=== PATIENT | male | born 1960 | race Caucasian/White ===

== ENCOUNTER 2024-12-18 09:48 | Observation (INO) ==
--- NOTE | 2024-11-19 15:26 | PAT Medication Instructions ---
Medication Instructions Date of Service November 19, 2024 Home Medications albuterol sulfate 90 mcg/actuation aerosol inhaler 2 puff inhalation Q6H PRN sob amlodipine 10 mg tablet 10 mg PO HS cholecalciferol (vitamin D3) 125 mcg (5,000 unit) tablet (Vitamin D3) 125 mcg PO QAM esomeprazole magnesium 40 mg capsule,delayed release 40 mg PO HS levothyroxine 125 mcg tablet (Synthroid) 125 mcg PO QAM meloxicam 15 mg tablet 15 mg PO HS mometasone-formoterol HFA 200 mcg-5 mcg/actuation aerosol inhaler (Dulera) 2 puff inhalation BID multivitamin 1 tab PO QAM valsartan 320 mg tablet 320 mg PO QAM ASK your surgeon for instructions meloxicam 15 mg tablet 15 mg PO HS DO NOT take the morning of surgery cholecalciferol (vitamin D3) 125 mcg (5,000 unit) tablet (Vitamin D3) 125 mcg PO QAM multivitamin 1 tab PO QAM valsartan 320 mg tablet 320 mg PO QAM Take morning of surgery With a small sip of water, OTHERWISE NOTHING TO EAT OR DRINK AFTER MIDNIGHT: albuterol sulfate 90 mcg/actuation aerosol inhaler 2 puff inhalation Q6H PRN sob (use if needed; please bring rescue inhaler with you to hospital day of surgery if possible) levothyroxine 125 mcg tablet (Synthroid) 125 mcg PO QAM mometasone-formoterol HFA 200 mcg-5 mcg/actuation aerosol inhaler (Dulera) 2 puff inhalation BID Take evening before surgery albuterol sulfate 90 mcg/actuation aerosol inhaler 2 puff inhalation Q6H PRN sob (if needed) amlodipine 10 mg tablet 10 mg PO HS esomeprazole magnesium 40 mg capsule,delayed release 40 mg PO HS mometasone-formoterol HFA 200 mcg-5 mcg/actuation aerosol inhaler (Dulera) 2 puff inhalation BID Other Notes If you have any questions please call us at [phone] or [phone] or [phone] or [phone]
--- NOTE | 2024-11-27 11:47 | Anesthesiology Consultation ---
Date of Service November 27, 2024 Assessment & Plan (1) Encounter for pre-operative examination: - awaiting surgeon ordered medical clearance, Brady Tunicaronel Rosales 12/08/24. Chart Review Chart Review: Pending: Refer to Additional Notes / Consult section and Patient seen in Pre Admission Testing Teaching & Discussion Pre-Anesthesia Teaching/Discussion Notes: Instructed NPO after midnight before surgery, except medications with 15 cc of water. Medication instructions provided according to the PAT guidelines. History Surgery Operation Date: 12/18/24 07:45 Proposed Procedures p L5-S1 Hardware Removal, L3-L5 Decompression, L5-S1 Exploration, L3-S1 Fusion - Emeterio Haddad, Height/Weight Height: 6 ft Weight: 130.5 kg Allergies Allergy/AdvReac Type Severity Reaction Status Date / Time No Known Allergies Allergy Unknown * Verified 11/18/24 14:14 Medications Home Medications Medication Instructions Recorded Confirmed Last Taken albuterol sulfate 90 mcg/actuation 2 puff inhalation Q6H PRN sob 11/18/24 11/18/24 Unknown aerosol inhaler amlodipine 10 mg tablet 10 mg PO HS 11/18/24 11/18/24 Unknown cholecalciferol (vitamin D3) 125 125 mcg PO QAM 11/18/24 11/18/24 Unknown mcg (5,000 unit) tablet (Vitamin D3) esomeprazole magnesium 40 mg 40 mg PO HS 11/18/24 11/18/24 Unknown capsule,delayed release levothyroxine 125 mcg tablet 125 mcg PO QAM 11/18/24 11/18/24 Unknown (Synthroid) meloxicam 15 mg tablet 15 mg PO HS 11/18/24 11/18/24 Unknown mometasone-formoterol HFA 200 2 puff inhalation BID 11/18/24 11/18/24 Unknown mcg-5 mcg/actuation aerosol inhaler (Dulera) multivitamin 1 tab PO QAM 11/18/24 11/18/24 Unknown valsartan 320 mg tablet 320 mg PO QAM 11/18/24 11/18/24 Unknown Past Medical History Medical History Acid reflux controlled, stable per pt Asthma well controlled w/ daily inhaler use; last albuterol inhaler use several weeks from cigarette smoke exposure History of anesthesia complications severe constipation after lumbar surgery History of COVID-19 (2022) resolved History of vertigo resolved w/ therapy HTN (hypertension) controlled, stable per pt Hx of thyroid nodule Hypothyroidism Sleep apnea CPAP-compliant Patient denies h/o stroke, seizures, heart attack, heart failure, DM, blood clots/DVTs or blood transfusions. Exercise / Class Metabolic Activity II 4-5 Yardwork/Stairs/Walk up hill (occasional shortness of breath with one flight of stairs if increased activity/air exposure, denies chest discomfort) Past Family History Family History Mother Diabetes Past Surgical History Surgical History History of lumbar fusion l5-s1 History of partial thyroidectomy right History of pterygium excision right eye Hx of cholecystectomy Hx of colonoscopy Hx of wisdom tooth extraction Past Anesthesia History No Family Hx of Anesthesia Complications and Other (severe constipation post-op) History of PONV No Hx of PONV and No Hx of Motion Sickness Social History Smoking Status: Never smoker Do You Dip or Chew Tobacco: No Hx Alcohol Use: Yes Alcohol type: beer alcohol intake frequency: 3 or more drinks per day (5 beers daily-denies h/o withdrawal, seizures, tremors) Hx Substance Use: No substance use type: does not use Review of Systems Patient denies chest pain, fever, chills, cough, wheezing, or palpitations. Physical Exam Vital Signs Vitals BP 146/78 P 83 TEMP 98.2 SP02 96% on RA RESP 18 Physical Patient resting comfortably in chair in no acute distress, alert and oriented, responding appropriately throughout visit Full cervical extension range of motion without pain TMD 3.5 finger breadths Mallampati Score 3 Dentition: intact, denies chipped or loose teeth, caps/crowns, implants or bridges Lungs: normal respiratory effort. Good air movement, clear throughout to auscultation, no adventitious breath sounds Cardiac: regular rate and rhythm, no murmurs noted Carotid arteries: negative bruit bilat Lab Results Anesthesia Preop Results Results Anesthesia Widget: WBC 5.29 K/ul (4.8-10.8) 11/27/24 Hgb 14.1 g/dl (14.0-18.0) 11/27/24 Hct 41.5 % (42.0-52.0) L 11/27/24 Plt 207 K/uL (130-400) 11/27/24 Na 141 mmol/L (136-145) 11/27/24 K 4.2 mmol/L (3.5-5.1) 11/27/24 Cl 108 mmol/L (98-107) H 11/27/24 CO2 26 mmol/L (21-32) 11/27/24 BUN 17 mg/dl (6-23) 11/27/24 Creat 0.87 mg/dl (0.6-1.4) 11/27/24 Glucose Level 116 mg/dl (70-99(Fasting)) H 11/27/24 PT 10.9 Seconds (9.0-12.0) 11/27/24 PTT 29 Seconds (21-31) 11/27/24 INR 1.0 (0.9-1.1) 11/27/24 Urine Color Yellow 11/27/24 Urine Appearance Clear (Clear) 11/27/24 Urine pH 6.0 (4.5-7.5) 11/27/24 Urine Specific [place] 1.013 (1.000-1.030) 11/27/24 Urine Protein Negative (Negative) 11/27/24 Urine Glucose (UA) Negative (Negative) 11/27/24 Urine Ketones Negative (Negative) 11/27/24 Urine Blood Negative (Negative) 11/27/24 Urine Nitrite Negative (Negative) 11/27/24 Urine Bilirubin Negative (Negative) 11/27/24 Urine Urobilinogen Negative (Negative) 11/27/24 Urine Leukocyte Esterase Negative (Negative) 11/27/24 Blood Type O Positive 11/27/24 Antibody Screen NEGATIVE 11/27/24 Testing Electrocardiogram Date: 11/27/24 NSR, rate 73 bpm Possible inferior infarct, age undetermined No significant change vs 05/21/2008 EKG Chest X-Ray Date: 11/27/24 There is mild cardiomegaly without pulmonary vascular congestion. No consolidation or pleural effusion. IMPRESSION: No acute findings.
[~2024-12-18 09:48] MED LIST: LIDOCAINE 2% 2 ML VIAL/AMP(20MG/ML) INFIL ONE; PROPOFOL IV EMULSION 10 MG/ML 20 ML VIAL IV ONE; ROCURONIUM BROMIDE 10 MG/ML 5 ML VIAL IV ONE
[2024-12-18] MEDS: LR 15ML/HR IV SCH (10:17)
[2024-12-18] MEDS: ACETAMINOPHEN 500 MG TAB PO SCH (10:17)
[2024-12-18] MEDS: CeleBREX 200 MG CAP PO SCH (10:17)
[2024-12-18] MEDS: GABAPENTIN 600 MG DOSE PO SCH (10:17)
[2024-12-18] MEDS ORDERED: ONDANSETRON INJ 2 MG/ML 2 ML VIAL IV PRN ×2 (10:35→16:08)
[2024-12-18] MEDS ORDERED: ATROPINE SULFATE 0.1 MG/ML 10ML SYR IV PRN (10:35)
[2024-12-18] MEDS ORDERED: FLUMAZENIL 0.1 MG/1 ML 10 ML VIAL IV PRN (10:35)
[2024-12-18] MEDS ORDERED: PROMETHAZINE HCL 6.25 MG in SODIUM CHLORIDE 0.9% 50 ML IV PRN (10:35)
[2024-12-18] MEDS ORDERED: NALOXONE HCL 0.4 MG/1 ML VIAL/CARP IV PRN ×2 (10:35→16:08)
[2024-12-18] MEDS: LR 60ML/HR IV SCH (10:39)
--- NOTE | 2024-12-18 10:50 | History & Physical Bridge Note ---
Date of Service December 18, 2024 History & Physical Bridge Note I have examined the patient, reviewed the History & Physical and in the interval since the performance of the History & Physical I have noted the following changes of clinical significance: no changes noted
--- NOTE | 2024-12-18 10:51 | History & Physical Report ---
Date of Service December 18, 2024 Assessment & Plan (1) Multilevel lumbosacral spondylosis with radiculopathy: Plan: Hardware removal L5-S1, decompression L3-L5, exploration L5-S1, fusion L3-S1 History of Present Illness Chief Complaint: Back and leg pain Primary Care Provider: Leighann Rosales This is a 64-year-old male who presents for chronic persistent back and leg pain after failing course of nonoperative care is here for surgical intervention. Allergies Allergy/AdvReac Type Severity Reaction Status Date / Time No Known Allergies Allergy Unknown * Verified 12/18/24 10:07 Home Medications Medication Instructions Recorded Confirmed Type albuterol sulfate 90 mcg/actuation 2 puff inhalation Q6H PRN sob 11/18/24 12/18/24 History aerosol inhaler amlodipine 10 mg tablet 10 mg PO HS 11/18/24 12/18/24 History cholecalciferol (vitamin D3) 125 125 mcg PO QAM 11/18/24 12/18/24 History mcg (5,000 unit) tablet (Vitamin D3) esomeprazole magnesium 40 mg 40 mg PO HS 11/18/24 12/18/24 History capsule,delayed release levothyroxine 125 mcg tablet 125 mcg PO QAM 11/18/24 12/18/24 History (Synthroid) meloxicam 15 mg tablet 15 mg PO HS 11/18/24 12/18/24 History mometasone-formoterol HFA 200 2 puff inhalation BID 11/18/24 12/18/24 History mcg-5 mcg/actuation aerosol inhaler (Dulera) multivitamin 1 tab PO QAM 11/18/24 12/18/24 History valsartan 320 mg tablet 320 mg PO QAM 11/18/24 12/18/24 History Past Med/Surg History Problem List (Updated 12/18/24 @ 10:51 by Emeterio Haddad DO) Multilevel lumbosacral spondylosis with radiculopathy Encounter for pre-operative examination Medical History Acid reflux controlled, stable per pt Asthma well controlled w/ daily inhaler use; last albuterol inhaler use several weeks from cigarette smoke exposure History of anesthesia complications severe constipation after lumbar surgery History of COVID-19 (2022) resolved History of vertigo resolved w/ therapy HTN (hypertension) controlled, stable per pt Hx of thyroid nodule Hypothyroidism Sleep apnea CPAP-compliant Surgical History History of lumbar fusion l5-s1 History of partial thyroidectomy right History of pterygium excision right eye Hx of cholecystectomy Hx of colonoscopy Hx of wisdom tooth extraction Family History Mother Diabetes Social History Smoking Status: Never smoker Second Hand Exposure: No; Do You Dip or Chew Tobacco: No; Tobacco Cessation Education Requested by Patient: No Hx Alcohol Use: Yes Alcohol type: beer Hx Substance Use: No Preferred Language: [place] Islander Communication Ability: Effective Scaffold Setter Required: No Beliefs That Will Affect Care: None Current Living Situation: Spouse Other Information That Helps Us Care for You: No Feels Safe at Home: Yes Safety Concerns: Feels Safe At This Time Assistive Devices: Glasses Physical Exam Physical Exam: Patient is alert and oriented Heart regular rhythm Lungs clear Results & Data Results & Data Vital Signs (Past 12 Hours) Vital Signs Temp Pulse Resp BP Pulse Ox O2 Del Method 12/18/24 10:40 36.6 C 78 20 172/94 H 98 Room Air
[2024-12-18] MEDS ORDERED: KETAMINE HCL 10MG/ML SYR ONE (11:08)
[2024-12-18] MEDS ORDERED: MIDAZOLAM HCL 1 MG/ML 2ML VIAL ONE (11:08)
[2024-12-18] MEDS ORDERED: SUGAMMADEX SODIUM 200 MG/2 ML VIAL IV ONE (11:08)
[2024-12-18] MEDS ORDERED: ALBUTEROL HFA 8 GM INHALER INH ONE (11:11)
[2024-12-18] MEDS ORDERED: ACETAMINOPHEN 1000 MG/100 ML IV IV ONE (11:11)
[2024-12-18] MEDS: ceFAZolin 3000MG 3,000 MG/72.5 ML BAG IV SCH (11:21)
[2024-12-18] MEDS ORDERED: ePHEDrine sulfate 50 MG/5 ML SYR ONE (11:41)
[2024-12-18] MEDS ORDERED: ONDANSETRON INJ 2 MG/ML 2 ML VIAL ONE (11:44)
[2024-12-18] MEDS ORDERED: DEXAMETHASONE SOD INJ 4 MG/ML VIAL ONE (11:44)
[2024-12-18] MEDS ORDERED: PHENYLEPHRINE HCL 10 MG/ML VIAL ONE (12:19)
[2024-12-18] MEDS: ceFAZolin 330 MG/ML 1 GM VIAL ONE (12:39)
[2024-12-18] MEDS ORDERED: ROCURONIUM BROMIDE 10 MG/ML 5 ML VIAL IV ONE (12:57)
[2024-12-18] MEDS ORDERED: HYDROmorphone INJ 2 MG/ML SYR/VIAL ONE (12:59)
[2024-12-18] MEDS ORDERED: ALBUMIN HUMAN 5% 12.5 GM/250 ML VIAL IV ONE (13:24)
[2024-12-18] MEDS: BUPIVACAINE/EPINEPHRINE 0.25% 1:200,000 30 ML VIAL ONE (13:41)
[2024-12-18] MEDS: SURGICEL ABSORB HEMOSTAT 2IN X 14IN TOP ONE (13:42)
[2024-12-18] MEDS: FLOSEAL HEMOSTATIC MATRIX 10ML TOP ONE (13:42)
--- NOTE | 2024-12-18 13:48 | Operative Report ---
Post Operative Report Pre & Post Diagnosis Operation Date: 12/18/24 10:55 Pre-Op Diagnosis: Multilevel lumbosacral spondylosis with radiculopathy Post-Op Diagnosis: Multilevel lumbosacral spondylosis with radiculopathy I identified the patient and participated in the time-out.: Yes Procedure Operation Date: 12/18/24 10:55 Actual Procedures #1 removal of posterior instrumentation L5-S1. #2 exploration of fusion L5-S1. #3 lumbar decompression with bilateral medial facetectomies and foraminotomies L3-L4 L4-5. #4 posterior spinal fusion L3-L5. #5 placement posterior instrumentation L3-S1 using Hawthorne. #6 interbody fusion L3-L4 L4-L5. #7 placement of Spira 13 x 26 mm at L3-L4 and L4-L5. #8 placement of Proteus, with Koros bone graft in the posterior lateral gutters and os design interbody space. #9 application of versa wrap of the exposed dura. Surgeon Emeterio Haddad, DO Veneer Jointer Jake Mariee Estimated Blood Loss 850 Findings See Below The patient is 6 foot tall weighing 126 kg with a BMI in excess of 37. This combined with an EBL of greater than 900 cc created significant technical difficulty including positioning exposure and the procedure itself. Patient demonstrated significant epidural adhesions prolonging and complicating the decompression. This had at least 50% increased operative time. I am recommending a modifier 22. Specimens None Indications This is a 64-year-old male presents publish diagnosis after failing course of nonoperative care is here for surgical invention. Description of Procedure Patient was met with identified informed consent obtained. Patient was then taken to the operative suite underwent intubation and placed in a prone position on the Oh table of the Delano frame. All bony promises well-padded eyes inspected to ensure no external pressure placed upon them. This point lumbar spine was prepped and draped in normal sterile fashion. Sharp dissection with the assistance of Bovie cautery from down to and exposing the lamina and transverse processes of L3-L4 and instrumentation at L5-S1 bilaterally. Then proceeded to remove the hardware bilaterally. Explored the fusion mass noting it to be mature and intact. Then performed a complete laminectomy of L4 with bilateral medial facetectomies and foraminotomies followed by complete laminectomy of L3 with bilateral male facetectomies and foraminotomies addressing severe subarticular and foraminal stenosis. Pedicle screws were then placed at L3 L4-5 and the S1 levels bilaterally with assistance of fluoroscopy and purposes robi contoured and placed. By way of transforaminal approach on the left and complete discectomy of L4-L5 was performed endplates curetted to subcortical bleeding bone and a 13 x 26 mm Spira cage tapped in position. Then proceeded to L3-L4 and again by way of transforaminal approach on the left. Complete be discectomy performed. Endplates curetted subcortical and bone. A 13 x 26 mm Spira cage was tapped into position. Please note all cages were packed with os design bone graft. The rods then locked into position bilaterally. Transverse processes of L3 L4-5 burred to subcortical bleeding bone. Proteus combined with Koros bone graft placed in posterior gutters. Versa wrap placed of exposed dura. 15 round BAILEY drain inserted. The incision was then closed with 1 Vicryl to fascia 2-0 Vicryl subcutaneously and 4-0 Monocryl for final skin closure. Steri-Strips sterile dressing placed. Patient waken taken to PACU stable condition. Please note Jake Bernstein was present at the entire procedure on the patient positioning complex course of the surgery and final skin closure. Im ordering 10 grams of Collagen Powder ([facility] A6010 Primary Dressing) and 10 bordered super absorbent ([facility] A6196 Secondary Dressing) to treat an incision wound that was caused by a spine procedure. The incision is approximately 2 cm(W) x 2 cm(L) down to the spinal column and epidural space 2 cm (D) in size and is a full thickness wound showing no signs of infection. Collagen comes in 1 gram packets so 10 packets were ordered. Given the size of the wound, with moderate exudate I chose to order a 10 day supply. The patient will be provided instructions for proper application of the collagen wound kit. The patient will be asked to apply the collagen powder daily and then cover it with sterile dressings dispensed. Collagen was selected as I expect the collagen to attract monocytes and fibroblasts, act as a sacrificial substrate for MMPs, and ultimately proved a matrix for tissue and vessel growth. The collagen will act as a primary dressing in this scenario. It is medically necessary for proper healing of these wounds to improve bioavailability and contact with each wound surface, this is also to help prevent infection of wounds and promote healing ultimately leading to a better healing outcome and limit the risk of infection. I attest to the content of the Intraoperative Record and any orders documented therein. Any exceptions are noted below.
--- NOTE | 2024-12-18 14:10 | Fluoroscopy Report ---
FL lumbar spine 2-3V CLINICAL HISTORY: L3-S1 FUSION COMPARISON STUDY: None FLUOROSCOPY TIME: 11 seconds FLUOROSCOPY IMAGES: 2 EXPOSURE DOSE: 13 mGy FINDINGS: Fluoroscopy was provided for lumbar surgery. IMPRESSION: Intraoperative fluoroscopy. ACT 112: Negative or not required by law. Electronically signed by: Nolan Gan M.D. 12/18/2024 2:08 PM
[2024-12-18] MEDS: HYDROmorphone INJ 1 MG/ML SYRINGE IV PRN (14:42)
--- NOTE | 2024-12-18 14:55 | Anesthesiology Progress Note ---
Date of Service December 18, 2024 Anesthesia Post Procedure Vital Signs Vital Signs: Temp Pulse Pulse Resp BP Pulse Ox O2 Del Method 12/18/24 14:45 79 16 122/78 97 Nasal Cannula 12/18/24 14:35 84 18 123/73 97 Oxymask 12/18/24 14:25 79 16 128/75 100 Oxymask 12/18/24 14:15 36.7 C 82 12 128/80 100 Oxymask 12/18/24 10:40 36.6 C 78 20 172/94 H 98 Room Air O2 Flow Rate 12/18/24 14:45 2 12/18/24 14:35 2 12/18/24 14:25 4 12/18/24 14:15 6 12/18/24 10:40 Pain Intensity Lower Back: Pain Intensity: 5 Transfer of Care Handoff Completed per policy Notes Mental Status: alert / awake / arousable and participated in evaluation Patient Amnestic to Procedure: Yes Nausea / Vomiting: adequately controlled Pain: adequately controlled Airway Patency, RR, SpO2: stable & adequate BP & HR: stable & adequate Hydration State: stable & adequate Anesthetic Complications: no major complications apparent and Pt Satisfied with anesthetic care
[2024-12-18] MEDS ORDERED: ALBUTEROL HFA 8 GM INHALER INH PRN (16:08)
[2024-12-18] MEDS ORDERED: PROMETHAZINE 12.5 MG/50.5 ML BAG IV PRN (16:08)
[2024-12-18] MEDS ORDERED: MAGNESIUM HYDROXIDE SUSP 30 ML UDC PO PRN (16:08)
[2024-12-18] MEDS ORDERED: SOD PHOSPHATE/SOD BIPHOSPHATE ENEMA 132 ML BTL PR PRN (16:08)
[2024-12-18] MEDS ORDERED: FAMOTIDINE 20 MG TAB PO PRN (16:08)
[2024-12-18] MEDS ORDERED: ONDANSETRON 4 MG OD TAB PO PRN (16:08)
[2024-12-18] MEDS ORDERED: METOCLOPRAMIDE HCL INJ 5 MG/ML 2 ML VIAL IV PRN (16:08)
[2024-12-18] MEDS ORDERED: HYDROmorphone INJ 0.5 MG/0.5 ML SYR IV PRN (16:08)
[2024-12-18] MEDS ORDERED: LORazepam 0.5 MG TAB PO PRN (16:08)
[2024-12-18] MEDS ORDERED: ACETAMINOPHEN 1,000 MG/100 ML VIAL IV PRN (16:08)
[2024-12-18] MEDS ORDERED: diphenhydrAMINE Capsule 25 MG CAP PO PRN (16:08)
[2024-12-18] MEDS ORDERED: DO NOT ADMINISTER PNEUMOCOCCAL VACCINE PRN (16:08)
[2024-12-18] MEDS ORDERED: DO NOT ADMINISTER FLU VACCINE PRN (16:08)
[2024-12-18] MEDS ORDERED: HYDROmorphone INJ 1 MG/ML SYRINGE IV PRN (16:08)
[2024-12-18] MEDS ORDERED: ALUMINUM/MAGNESIUM SUSP 30 ML UDC PO PRN (16:08)
[2024-12-18] MEDS ORDERED: LORazepam Inj 0.5 MG in SYRINGE 0.25 ML IV PRN (16:08)
--- NOTE | 2024-12-18 17:17 | Hospitalist Consultation ---
Date of Consultation December 18, 2024 History of Present Illness Attending Physician: Emeterio Haddad DO Allergies Allergy/AdvReac Type Severity Reaction Status Date / Time No Known Allergies Allergy Unknown * Verified 12/18/24 10:07 Home Medications Medication Instructions Recorded Confirmed Type albuterol sulfate 90 mcg/actuation 2 puff inhalation Q6H PRN sob 11/18/24 12/18/24 History aerosol inhaler amlodipine 10 mg tablet 10 mg PO HS 11/18/24 12/18/24 History cholecalciferol (vitamin D3) 125 125 mcg PO QAM 11/18/24 12/18/24 History mcg (5,000 unit) tablet (Vitamin D3) esomeprazole magnesium 40 mg 40 mg PO HS 11/18/24 12/18/24 History capsule,delayed release levothyroxine 125 mcg tablet 125 mcg PO QAM 11/18/24 12/18/24 History (Synthroid) meloxicam 15 mg tablet 15 mg PO HS 11/18/24 12/18/24 History mometasone-formoterol HFA 200 2 puff inhalation BID 11/18/24 12/18/24 History mcg-5 mcg/actuation aerosol inhaler (Dulera) multivitamin 1 tab PO QAM 11/18/24 12/18/24 History valsartan 320 mg tablet 320 mg PO QAM 11/18/24 12/18/24 History Patient History Medical History Acid reflux controlled, stable per pt Asthma well controlled w/ daily inhaler use; last albuterol inhaler use several weeks from cigarette smoke exposure History of anesthesia complications severe constipation after lumbar surgery History of COVID-19 (2022) resolved History of vertigo resolved w/ therapy HTN (hypertension) controlled, stable per pt Hx of thyroid nodule Hypothyroidism Sleep apnea CPAP-compliant Surgical History History of lumbar fusion l5-s1 History of partial thyroidectomy right History of pterygium excision right eye Hx of cholecystectomy Hx of colonoscopy Hx of wisdom tooth extraction Family History Mother Diabetes Social History Smoking Status: Never smoker Second Hand Exposure: No; Do You Dip or Chew Tobacco: No; Tobacco Cessation Education Requested by Patient: No Hx Alcohol Use: Yes Alcohol type: beer Hx Substance Use: No Preferred Language: Occitan Communication Ability: Effective Body Designer Required: No Beliefs That Will Affect Care: None Current Living Situation: Spouse Other Information That Helps Us Care for You: No Feels Safe at Home: Yes Safety Concerns: Feels Safe At This Time Assistive Devices: Glasses Results & Data Results & Data Vital Signs (Past 12 Hours) Vital Signs Temp Pulse Pulse Resp BP Pulse Ox O2 Del Method 12/18/24 16:26 36.4 C L 82 16 120/79 97 Nasal Cannula 12/18/24 16:09 36.3 C L 86 18 112/75 97 Nasal Cannula 12/18/24 15:46 36.5 C 82 18 111/72 99 Nasal Cannula 12/18/24 15:15 85 16 124/80 98 Nasal Cannula 12/18/24 15:00 84 14 111/70 98 Nasal Cannula 12/18/24 14:55 36.4 C L 75 12 99/74 L 97 Nasal Cannula 12/18/24 14:45 79 16 122/78 97 Nasal Cannula 12/18/24 14:35 84 18 123/73 97 Oxymask 12/18/24 14:25 79 16 128/75 100 Oxymask 12/18/24 14:15 36.7 C 82 12 128/80 100 Oxymask 12/18/24 10:40 36.6 C 78 20 172/94 H 98 Room Air O2 Flow Rate 12/18/24 16:26 2 12/18/24 16:09 2 12/18/24 15:46 2 12/18/24 15:15 2 12/18/24 15:00 2 12/18/24 14:55 2 12/18/24 14:45 2 12/18/24 14:35 2 12/18/24 14:25 4 12/18/24 14:15 6 12/18/24 10:40
[2024-12-18] MEDS: SODIUM CHLORIDE 0.9% 1,000 ML IV SCH (17:59)
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
[2024-12-18] MEDS: ACETAMINOPHEN 500 MG TAB PO PRN (19:40)
[2024-12-18] MEDS: DOCUSATE SODIUM/SENNA 50/8.6MG TAB PO SCH (20:22)
[2024-12-18] MEDS: FLUTICASONE/VILANTEROL 200/25MCG 14 PUFFS/INHALER INH SCH (20:23)
[2024-12-19] MEDS: POLYETHYLENE (MIRALAX) 17 GM PACK PO SCH (05:44)
[2024-12-19] MEDS: LEVOTHYROXINE SODIUM 125 MCG TABLET PO SCH (05:45)
[2024-12-19 07:18] LABS: Hematocrit (blood only) 33.2 % (42.0-52.0); Hemoglobin 10.8 g/dl (14.0-18.0); Immature Granulocytes # (auto) 0.05 K/uL (0.01-0.20); Immature Granulocytes % (auto) 0.4 %; Mean Corpuscular Hemoglobin 30.8 pg (25.0-34.0); Mean Corpuscular Volume 94.6 fL (80.0-100.0); Platelet Count 190 K/uL (130-400); RDW Standard Deviation 45.3 fL (36.4-46.3); Red Blood Count 3.51 M/uL (4.70-6.10); White Blood Count 11.15 K/ul (4.8-10.8)
[2024-12-19 07:34] LABS: Anion Gap 10.0 (3-11); Blood Urea Nitrogen 16.0 mg/dl (6-23); Calcium 8.9 mg/dl (8.6-10.3); Carbon Dioxide 22.0 mmol/L (21-32); Chloride 104.0 mmol/L (98-107); Creatinine Clr Calc Pharmacy 115.4 ml/min; Glucose 137.0 mg/dl (70-99(Fasting)); Potassium 4.0 mmol/L (3.5-5.1); Sodium 136.0 mmol/L (136-145)
[2024-12-19] MEDS: MULTIVITAMIN TAB PO SCH (08:13)
[2024-12-19] MEDS: CHOLECALCIFEROL 125 MCG (5,000 UNITS) TAB PO SCH (08:14)
[2024-12-19] MEDS: dexAMETHasone 6 MG in SYRINGE 0 ML IV SCH (08:59)
[2024-12-19] MEDS ORDERED: VALSARTAN 80 MG TAB PO SCH (09:00)
--- NOTE | 2024-12-19 09:31 | Orthopedic Progress Note ---
Date of Service December 19, 2024 Assessment & Plan (1) Multilevel lumbosacral spondylosis with radiculopathy: Plan: We will initiate physical therapy today monitor his BAILEY output over the discharge home next few days. Admission and Anticipated Discharge Date Admission Date: December 18, 2024 Subjective Patient's leg symptoms are markedly improved. Back pain is controlled. Physical Exam Physical Exam: Patient is in the chair at the bedside. He is comfortable. Good strength testing. Results & Data Vital Signs (Past 12 Hours) Vital Signs Temp Pulse Resp BP Pulse Ox O2 Del Method 12/19/24 06:59 36.6 C 77 18 124/77 96 Room Air 12/19/24 03:00 36.9 C 76 20 115/73 96 Room Air 12/18/24 23:30 36.4 C L 76 16 114/75 97 Room Air Queries Orthopedic Spine Obesity: Yes
--- NOTE | 2024-12-19 10:51 | Hospitalist Progress Note ---
Date of Service December 19, 2024 Assessment & Plan (1) Multilevel lumbosacral spondylosis with radiculopathy: Plan: Patient is a 64 year old male with past medical history of hypertension, sleep apnea on CPAP, partial thyroidectomy 2/2 thyroid nodule, hypothyroidism, asthma presenting with post-operative medical management s/p removal of posterior instrumentation and fusion of L5-S1,lumbar decompression with bilateral medial facetectomies and foraminotomies L3-L5, posterior spinal fusion L3-L5,placement posterior instrumentation L3-S1 and interbody fusion L3-L5 #Multilevel lumbosacral spondylosis w/ radiculopathy POD#0 s/p removal of posterior instrumentation L5-S1; fusion L5-S1; lumbar decompression with bilateral medial facetectomies and foraminotomies L3-L5; spinal fusion L3-L5; instrumentation L3-S1; interbody fusion L3-L5 with Dr. Haddad. Plan -Surgery managing -Currently on ancef and decadron -BAILEY drain per surgery -Hopefully key can be removed by tomorrow once he starts working with PT/OT -Pain control #Acute blood loss anemia -Secondary to surgery -Hgb Dropped from 14-->10.8 Plan -Follow Hgb and BP closely -Transfuse <7 -Monitor BAILEY output #Sleep Apnea #Asthma May use home CPAP at home settings Albuterol nebs as needed Continue home Dulera neb #Hypertension -Normotensive 12/19 with home norvasc, valsartan on hold -Resume tomorrow if he is hypertensive #Hypothyroidism s/p thyroidectomy Continue home levothyroxine DVT Ppx: SCDs Code status: Full PCP: Dr. Leighann Rosales Dispo: Admit I spent a total of 42 minutes coordinating, documenting, and providing care for this patient excluding time spent in the performance of separately billed services. This included personally reviewing all current laboratories and imaging studies, medical reconciliation, outpatient chart review and discussion with specialists (2) Sleep apnea: (3) Asthma: (4) HTN (hypertension): (5) Hypothyroidism: (6) Hx of thyroid nodule: Admission and Anticipated Discharge Date Admission Date: December 18, 2024 Subjective Feeling well today without any complaints. Patient denies F/C, CP, palpitations, SOB, dyspnea, abd pain, N/V/D Physical Exam Physical Exam: Vitals and labs reviewed General: Well appearing, NAD HEENT: EOMI, PERRLA Neck: Supple Cardiac: RRR no rubs gallops or murmurs Lungs: CTA no rhonchi wheezing or rales Abd: S NT ND BS positive : Key MSK: Full ROM. No obvious deformities BAILEY drain Ext: No Edema cyanosis Skin: Warm, Dry Neuro: AOx3 No focal deficits. Psych: Normal Mood Results & Data Results & Data Vital Signs (Past 12 Hours) Vital Signs Temp Pulse Resp BP Pulse Ox O2 Del Method 12/19/24 06:59 36.6 C 77 18 124/77 96 Room Air 12/19/24 03:00 36.9 C 76 20 115/73 96 Room Air 12/18/24 23:30 36.4 C L 76 16 114/75 97 Room Air Laboratory Results Abnormal lab results 12/18/24 12/19/24 Range/Units 09:46 06:27 WBC 11.15 H (4.8-10.8) K/ul RBC 3.51 L (4.70-6.10) M/uL Hgb 10.8 L (14.0-18.0) g/dl Hct 33.2 L (42.0-52.0) % Neut # (Auto) 9.51 H (1.40-6.50) K/uL Lymph # (Auto) 0.91 L (1.20-3.40) K/uL [place] # (Auto) 0.63 H (0.11-0.59) K/uL Glucose 137 H (70-99(Fasting)) mg/dl Crossmatch See Detail
--- NOTE | 2024-12-20 08:20 | Orthopedic Progress Note ---
Date of Service December 20, 2024 Assessment & Plan (1) Multilevel lumbosacral spondylosis with radiculopathy: Plan: Ray is postoperative day 2 status post hard removal L5-S1, decompression and fusion L3-5. Will continue with physical therapy and ambulation today. DVT prophylaxis is in the form teds and SCDs. Maintain BAILEY drain. Continue to work on pain control. Anticipate discharge home tomorrow Admission and Anticipated Discharge Date Admission Date: December 18, 2024 Subjective Ray is postoperative day 2 status post hard removal L5-S1, decompression and fusion L3-5. Overall he is doing well. Has a little bit of left leg burning which she had preoperatively but it is improving. He had a bowel movement. Hemoglobin this morning is 11.1. Initially in physical therapy ambulating [address]. BAILEY drain output left shift is 60 cc. Review of Systems Review of Systems: All systems reviewed & are unremarkable except as noted in HPI & below Physical Exam Physical Exam: He is laying in bed in no acute distress cooperative with exam Alert and oriented x 3 Strength is intact bilateral lower extremities Lumbar dressing is clean dry intact with functioning BAILEY drain Results & Data Vital Signs (Past 12 Hours) Vital Signs Temp Pulse Pulse Resp BP Pulse Ox O2 Del Method 12/20/24 07:38 36.8 C 77 16 131/80 97 Room Air 12/19/24 23:45 36.7 C 76 18 136/83 97 Room Air Queries Orthopedic Spine Obesity: Yes
--- NOTE | 2024-12-20 09:20 | Hospitalist Progress Note ---
Date of Service December 20, 2024 Assessment & Plan (1) Multilevel lumbosacral spondylosis with radiculopathy: Plan: Patient is a 64 year old male with past medical history of hypertension, sleep apnea on CPAP, partial thyroidectomy 2/2 thyroid nodule, hypothyroidism, asthma presenting with post-operative medical management s/p removal of posterior instrumentation and fusion of L5-S1,lumbar decompression with bilateral medial facetectomies and foraminotomies L3-L5, posterior spinal fusion L3-L5,placement posterior instrumentation L3-S1 and interbody fusion L3-L5 #Multilevel lumbosacral spondylosis w/ radiculopathy POD#0 s/p removal of posterior instrumentation L5-S1; fusion L5-S1; lumbar decompression with bilateral medial facetectomies and foraminotomies L3-L5; spinal fusion L3-L5; instrumentation L3-S1; interbody fusion L3-L5 with Dr. Haddad. Plan -Surgery managing -Currently on ancef and decadron -BAILEY drain per surgery -Pain control -No medical contraindication for DC tomorrow #Acute blood loss anemia -Secondary to surgery -Hgb Dropped from 14-->10.8 -Hgb improved to 11.1 today Plan -Follow Hgb and BP closely -Transfuse <7 -Monitor BAILEY output #Sleep Apnea #Asthma May use home CPAP at home settings Albuterol nebs as needed Continue home Dulera neb #Hypertension -Normotensive 12/19 with home norvasc, valsartan on hold -Resume norvasc 12/20 -Can resume ARB on discharge #Hypothyroidism s/p thyroidectomy Continue home levothyroxine DVT Ppx: SCDs Code status: Full PCP: Dr. Leighann Rosales Dispo: Admit I spent a total of 45 minutes coordinating, documenting, and providing care for this patient excluding time spent in the performance of separately billed services. This included personally reviewing all current laboratories and imaging studies, medical reconciliation, outpatient chart review and discussion with specialists (2) Sleep apnea: (3) Asthma: (4) HTN (hypertension): (5) Hypothyroidism: (6) Hx of thyroid nodule: Admission and Anticipated Discharge Date Admission Date: December 18, 2024 Subjective Feeling well this AM. key was removed and urinating without difficulty. moved bowels. Patient denies F/C, CP, palpitations, SOB, dyspnea, abd pain, N/V/D Physical Exam Physical Exam: Vitals and labs reviewed General: Well appearing, NAD HEENT: EOMI, PERRLA Neck: Supple Cardiac: RRR no rubs gallops or murmurs Lungs: CTA no rhonchi wheezing or rales Abd: S NT ND BS positive : No Key MSK: Full ROM. No obvious deformities BAILEY drain Ext: No Edema cyanosis Skin: Warm, Dry Neuro: AOx3 No focal deficits. Psych: Normal Mood Results & Data Results & Data Vital Signs (Past 12 Hours) Vital Signs Temp Pulse Pulse Resp BP Pulse Ox O2 Del Method 12/20/24 07:38 36.8 C 77 16 131/80 97 Room Air 12/19/24 23:45 36.7 C 76 18 136/83 97 Room Air Laboratory Results Abnormal lab results 12/20/24 Range/Units 05:25 Hgb 11.1 L (14.0-18.0) g/dl
[2024-12-20 23:52] VITALS: O2SAT 97
[2024-12-21 07:10] VITALS: BP 159/84; PULSE 82; RESP 16; TEMP 98.1
--- NOTE | 2024-12-21 09:14 | Discharge Summary ---
Date of Service December 21, 2024 Admission HPI Per Admitting Provider This is a 64-year-old male who presents for chronic persistent back and leg pain after failing course of nonoperative care is here for surgical intervention. Principal Diagnosis Lumbar spondylosis with radiculopathy Discharge Data Allergies Allergy/AdvReac Type Severity Reaction Status Date / Time No Known Allergies Allergy Unknown * Verified 12/18/24 10:07 Consultations 12/18/24 16:08 Consult Hospitalist Routine Procedures Performed Operation Date: 12/18/24 10:55 Actual Procedures p L5-S1 Hardware Removal, L3-L5 Decompression, L5-S1 Exploration, L3-S1 Fusion, Placement of Interbody (Not Applicable) - Emeterio Haddad DO Ordered Studies 12/18/24 10:55 [place] lumbar spine 2-3V Routine Hospital Course (1) Multilevel lumbosacral spondylosis with radiculopathy: Patient underwent lumbar decompression and fusion tolerated this well was taken to orthopedic floor postoperative. Postop he progressed appropriately. Marked improvement of his leg symptoms. Back pain controlled. BAILEY drain decreasing renetta ropriately. Subsidy discharged home. Discharge orders and instructions from the chart for further review. Total Time Total Time Spent Total Time Spent (In Minutes): 20 minutes Discharge Plan Discharge Items Patient Disposition: Home - Self-Care Reason For Visit: Lumbar Disc Disease with Radiculopathy, History of Discharge Diagnosis: Lumbar spondylosis with radiculopathy Activity: As commented below Non-emergency contact: Primary Care Provider Call non-emergency contact if: you have any medication questions Follow-up/Referrals: Leighann Rosales M.D. [Primary Care Provider] - Diet: Regular Addtl Attending Provider Instructions: ACTIVITY RECOMMENDATIONS: SELF CARE INSTRUCTIONS AFTER THORACIC/LUMBAR FUSIONS 1. You may walk to your tolerance. It is good exercise for your legs and back. Expect some back and intermittent leg aches and pains. 2. You may perform "counter-top" level activities (make a sandwich, aamir with a project, etc.). 3. No bending or lifting of more than 10 pounds or back twisting of any nature (roll like a log when turning in bed). 4. You may ride in a car for 20-30 minutes at a time. No driving until after your first visit with your doctor. 5. Frequent changes of position and restricting sitting to 30 minutes at a time will help limit the amount of back spasms and stiffness you may experience. 6. You may discontinue the use of ambulatory aids (cane, crutches, etc.) once your strength and confidence allow. 7. You may standard machine stitcher the shower and let water strike your incision when you arrive home at least once daily. Do not take a tub bath, sit in a hot tub or go into a swimming pool until after your first recheck in the office. 8. You may resume previous diet. SPECIAL CARE INSTRUCTIONS: VERY IMPORTANT TO READ AND REVIEW A. Your surgical incision has been closed with a cosmetic suture under the skin that will dissolve in about 6 weeks. In 14 days, you can use a pair of clean scissors and cut the suture that is left outside of the skin at the ends of your incision. 1. The small skin tapes can be removed 7 days after surgery if they have not fallen off by that point. 2. You may keep the wound open to air as much as possible to promote healing after post-op day number 5 unless told otherwise by your doctor. 3. If you think the wound looks like it is becoming infected (redness or worsening drainage) and/or you are experiencing fever, chill or worsening back pain and muscle spasms, contact the office so that we may evaluate you as soon as possible. B. Complications are uncommon, but please contact us if you have any signs or symptoms of: 1. wound infection (fever higher than 102.5 degrees F, redness, separation of wound, drainage, or increasing pain from the incision) 2. blood clots in legs (pain, swelling, redness and warmth in legs) 3. urinary tract infection (fever higher than 102.5 degrees F, burning upon urination or increased frequency of urination) 4. nerve problems (inability to walk on your toes or heels, numbness, loss of bowel or bladder control) 5. any other symptoms that concern you C. Please call the office at if you have any concerns or questions about your operation or recovery. D. No smoking! Smoking drastically decreases the chance of a solid fusion. E. Do not take any anti-inflammatory medications (Indocin, Advil, Motrin, Aspirin, Naprosyn, etc.) as these may inhibit the chance of a solid fusion. Tylenol is okay to take for pain. MANAGING PAIN AFTER SPINAL SURGERY 1. Narcotic medication is intended for short-term use and will be provided for surgical pain. Surgical pain usually lasts for a period of 4-6 weeks. Narcotic medication includes Percocet, Vicodin, Darvocet, Tylenol #3 or Lortab. 2. Longer-term pain is more appropriately treated with non-narcotic medication such as Tylenol ES. 3. Muscle spasm is not appropriately treated with narcotics. Muscle relaxers such as Soma, Flexeril or Skelaxin can be used along with Tylenol ES. 4. Remember that we all live with some "aches and pains". This is not unusual or uncommon after an injury or as we get older. a. Back pain is expected and may include muscle spasms for 4 to 6 weeks after surgery. The pain should gradually improve. If the pain worsens for no apparent reason, please contact the office. b. Intermittent leg pain may also be experienced and should not be concerned about unless it worsens for no apparent reason. If so, please contact the office. 5. We will provide appropriate medication within the normal guidelines of their prescribed use. We will also be very cautious and aware of potential abuse and extended duration of patients' medication needs. a. Pain medications are for your comfort and to assist with sleep and rest so that the tissue can heal. They are not provided in order to return to normal activity and should not be used through the day. To do so or worsening pain at night can result from ongoing tissue damage and development of tolerance to the prescribed medicine. 6. Please allow 2-3 days to process refills. Prescriptions will not be mailed but must be picked up at the office. FOLLOW UP VISIT: Keep your scheduled follow-up appointment. Any questions, please call the office at . Pending Studies at Discharge: No Stand-Alone Forms: [employer] Smoking Cessation Medications and PA Order Prescriptions: New tramadol 50 mg tablet 50 mg PO Q6H PRN (Reason: pain, moderate) Qty: 30 0RF oxycodone 5 mg tablet 5 mg PO Q6H PRN (Reason: pain) Qty: 30 0RF Continued multivitamin Tablet 1 tab PO QAM meloxicam 15 mg Tablet 15 mg PO HS amlodipine 10 mg Tablet 10 mg PO HS esomeprazole magnesium 40 mg Capsule,Delayed Release(Dr/Ec) 40 mg PO HS levothyroxine [Synthroid] 125 mcg Tablet 125 mcg PO QAM valsartan 320 mg Tablet 320 mg PO QAM albuterol sulfate 90 mcg/actuation Hfa Aerosol Inhaler 2 puff INHALATION Q6H PRN (Reason: sob) cholecalciferol (vitamin D3) [Vitamin D3] 125 mcg (5,000 unit) Tablet 125 mcg PO QAM Dulera 200-5 mcg/actuation Hfa Aerosol Inhaler 2 puff INHALATION BID Discharge Orders: Discharge Order (Routine); Ordered 12/21/24 Ordered By: Emeterio Haddad Admission Data Admit Date/Time: 12/18/24 13:53 Attending Provider: Emeterio Haddad Admit Provider: Emeterio Haddad Primary Care Provider: Leighann Rosales Other Providers: Maria De Jesus Nelson
--- NOTE | 2024-12-21 09:16 | Hospitalist Progress Note ---
Date of Service December 21, 2024 Assessment & Plan (1) Multilevel lumbosacral spondylosis with radiculopathy: Plan: Patient is a 64 year old male with past medical history of hypertension, sleep apnea on CPAP, partial thyroidectomy 2/2 thyroid nodule, hypothyroidism, asthma presenting with post-operative medical management s/p removal of posterior instrumentation and fusion of L5-S1,lumbar decompression with bilateral medial facetectomies and foraminotomies L3-L5, posterior spinal fusion L3-L5,placement posterior instrumentation L3-S1 and interbody fusion L3-L5 #Multilevel lumbosacral spondylosis w/ radiculopathy POD#0 s/p removal of posterior instrumentation L5-S1; fusion L5-S1; lumbar decompression with bilateral medial facetectomies and foraminotomies L3-L5; spinal fusion L3-L5; instrumentation L3-S1; interbody fusion L3-L5 with Dr. Haddad. Plan -Surgery managing -Currently on ancef and decadron -BAILEY drain per surgery -Pain control -No medical contraindication for DC today #Acute blood loss anemia -Secondary to surgery -Hgb Dropped from 14-->10.8 -Hgb stable at 11.0 Plan -Follow Hgb and BP closely -Transfuse <7 -Monitor BAILEY output #Sleep Apnea #Asthma May use home CPAP at home settings Albuterol nebs as needed Continue home Dulera neb #Hypertension -Resume norvasc 12/20 -Can resume ARB on discharge today #Hypothyroidism s/p thyroidectomy Continue home levothyroxine DVT Ppx: SCDs Code status: Full PCP: Dr. Leighann Rosales Dispo: Admit I spent a total of 44 minutes coordinating, documenting, and providing care for this patient excluding time spent in the performance of separately billed services. This included personally reviewing all current laboratories and imaging studies, medical reconciliation, outpatient chart review and discussion with specialists (2) Sleep apnea: (3) Asthma: (4) HTN (hypertension): (5) Hypothyroidism: (6) Hx of thyroid nodule: Admission and Anticipated Discharge Date Admission Date: December 18, 2024 Subjective Feeling well this AM. urinating without issue passing gas. NO BM yesterday but did have one the day before. Patient denies F/C, CP, palpitations, SOB, dyspnea, abd pain, N/V/D Physical Exam Physical Exam: Vitals and labs reviewed General: Well appearing, NAD HEENT: EOMI, PERRLA Neck: Supple Cardiac: RRR no rubs gallops or murmurs Lungs: CTA no rhonchi wheezing or rales Abd: S NT ND BS positive : No [place] MSK: Full ROM. No obvious deformities BAILEY drain Ext: No Edema cyanosis Skin: Warm, Dry Neuro: AOx3 No focal deficits. Psych: Normal Mood Results & Data Results & Data Vital Signs (Past 12 Hours) Vital Signs Temp Pulse Resp BP Pulse Ox O2 Del Method 12/21/24 07:07 36.7 C 82 16 159/84 H 97 Room Air 12/20/24 23:51 36.6 C 71 14 130/82 97 Room Air Laboratory Results Abnormal lab results 12/21/24 Range/Units 08:13 Hgb 11.0 L (14.0-18.0) g/dl
== END 2024-12-21 14:30 | disposition home or self-care (01) | DRG 427 ==
LOC: ASU 09:48 → INTOOBSV 13:53 → 3E 13:53